=== PATIENT | female | born 1975 | race Two or more races ===

== ENCOUNTER 2016-06-21 23:58 | Emergency (ER) | payer SELFPAY ==
--- NOTE | ~2016-06-21 | CR72 ---
[facility] A Service of [facility] & [facility] RADIOLOGY TEXT RESULTS PATIENT: ERICA SARKAR LOCATION: [facility] : 71 UNIT #: [id number] AGE: [address]: He Calzada MD SEX: F ORDER DR: [id number] [facility] [address] [place], [place] [address] [id number] E MR#: [id number] Acc #: [id number] NAME: ERICA SARKAR : 1975 SEX: F STUDY DATE/TIME: 06/21/2016 23:35 UNIT: [facility] ROOM: STUDY DESCRIPTION: CR Chest Single View Portable Attending Physician: He Calzada M.D. Ordering Physician: He Calzada M.D. Primary Care Physician: [facility] MEDICAL IMAGING REPORT This report is preliminary unless electronic signature is present EXAM Portable chest, 06/21/2016 HISTORY 41-year-old female with shortness of air and weakness for 1 day. COMPARISON None FINDINGS Frontal chest demonstrates clear lungs. No pleural effusion or pneumothorax. Heart size and mediastinum are normal. Pulmonary vasculature normal. IMPRESSION No acute cardiopulmonary findings. Dictated by... Nicola Sanchez M.D. THIS IS AN ELECTRONICALLY VERIFIED REPORT Nicola Sanchez M.D. at 06/22/2016 11:27 PM Nacho TD: 06/22/2016 13:08 JOB #: [id number] MEDICAL IMAGING REPORT Page 1 of 1 COPY
--- NOTE | ~2016-06-21 | EKG ---
PATIENT: LASHAUN SARKARLUPE UNIT #: [id number] Ventricular Rate: 74 BPM Atrial Rate: 74 BPM P-R Interval: 154 ms QRS Duration: 88 ms Q-T Interval: 380 ms QTC Calculation(Bezet): 421 ms P [place]: 21 degrees Calculated R [place]: 52 degrees Calculated T [place]: 64 degrees Diagnosis Line: Normal sinus rhythm Diagnosis Line: Nonspecific T wave abnormality Diagnosis Line: Abnormal ECG Diagnosis Line: No previous ECGs available Diagnosis Line: Confirmed by ARLENE EVERETT MD ([id number]) on 06/25/2016 Diagnosis Line: 10:30:59 PM INTERPRETING MD: MARGUERITE ARGUELLO
[2016-06-21 23:04] LABS: URINE SOURCE CLEAN CATCH
[2016-06-21 23:09] LABS: URINE APPEARANCE CLEAR; URINE BILIRUBIN NEG (NEG); URINE BLOOD 1+ (NEG); URINE COLOR YELLOW; URINE GLUCOSE NEG (NEG); URINE KETONE NEG (NEG); URINE LEUKOCYTE ESTERASE NEG (NEG); URINE NITRATE NEG (NEG); URINE PH 6.5 (5-8); URINE PROTEIN TRACE (NEG); URINE SPECIFIC GRAVITY 1.009 (1.003-1.035); URINE UROBILINOGEN 0.2 MG/DL (NEG)
[2016-06-21 23:12] LABS: CULTURE INDICATED? NO; URINE BACTERIA AUWI NEG (NEGATIVE); URINE SQUAMOUS EPITHELIAL CELL NONE SEEN /[HPF]; UWBCS1 AUWI 0-2 (0-5)
[2016-06-21 23:46] LABS: BASOPHIL# 0.1 X10e3 (0-0.3); BASOPHIL% 0.5 % (0-2.5); EOSINOPHIL# 0.2 X10e3 (0-0.7); EOSINOPHIL% 1.8 % (0.0-7.0); HEMATOCRIT 39.8 % (35.0-45.0); HEMOGLOBIN 12.8 gm/dL (12.0-16.0); LYMPHOCYTE# 2.2 X10e3 (1.0-3.5); LYMPHOCYTE% 20.8 % (17.0-45.0); MEAN CELL VOLUME 82.1 FL (83-96); MEAN CORPUSCULAR HEMOGLOBIN 26.4 PG (28-34); MEAN CORPUSCULAR HGB CONC 32.2 g/dL (30-36); MEAN PLATELET VOLUME 8.4 FL (6.5-11.5); MONOCYTE# 0.7 X10e3 (0-1.0); MONOCYTE% 6.8 % (3.0-12.0); NEUTROPHIL# 7.3 X10e3 (1.5-7.1); NEUTROPHIL% 70.1 % (40-75); PLATELET COUNT 300 X10e3 (140-420); RED BLOOD COUNT 4.85 X10e (3.90-5.30); RED CELL DISTRIBUTION WIDTH 17.2 % (11.0-15.5); WHITE BLOOD COUNT 10.5 X10e3 (4.0-10.5)
[2016-06-21 23:48] LABS: DIFF IND NO
[2016-06-21 23:57] LABS: POC - CKMB 1.1 ng/mL (0.0-7.9); POC - TROPONIN <0.05 ng/mL (<=0.05)
[~2016-06-21 23:58] MED LIST: FISH OIL 1,001000 MG PO; NITROSTAT0.4 MG SL
[2016-06-22 00:10] LABS: ALBUMIN SERUM 4.4 g/dL (3.5-5.0); BILIRUBIN, DIRECT 0.1 mg/dL (0.0-0.2); BILIRUBIN,INDIRECT 0.4 mg/dL (0.0-0.9); BILIRUBIN,TOTAL 0.5 mg/dL (0.2-2.0); CALCIUM SERUM 9.4 mg/dL (8.4-10.2); CREATININE SERUM 0.5 mg/dL (0.6-1.4); GLOM FILT RATE Estimated 118.6 mL/min (>60); POTASSIUM 3.6 mmol/L (3.5-5.1)
[2016-06-22 03:03] LABS: POC - CKMB 1.3 ng/mL (0.0-7.9); POC - TROPONIN <0.05 ng/mL (<=0.05)
== END 2016-06-22 03:10 | disposition home or self-care (01) ==
LOC: CED 23:58
PROVIDERS: Emergency Medicine
DX: F43.22 Adjustment disorder with anxiety (principal)
CPT/HCPCS: 36415; 71010; 80048; 80076; 81003; 82553; 82947; 84484; 84703; 85025; 93005; 99283